=== PATIENT | female | born 1990 | race Caucasian/White ===

== ENCOUNTER 2016-12-03 02:15 | Inpatient (IN) | payer BC ==
[2016-12-03] VITALS (13 sets, daily range): BP systolic 122–133; BP diastolic 60–96
[~2016-12-03] VITALS: Ht 157.5 cm; Wt 90.9 kg
[2016-12-03 03:25] LABS: EOSINOPHIL (%) 0.3 % (0-5); HEMATOCRIT 36.8 % (36.0-46.0); IMMATURE GRANULOCYTE (%) 0.5 % (0.0-0.7); IMMATURE GRANULOCYTE COUNT 0.7 K/uL; LYMPHOCYTE COUNT 2.4 K/uL (1.0-2.8); MCH 32.5 PG (29.0-34.0); MCHC 35.1 G/DL (30.0-36.0); MCV 92.7 FL (83-99); MEAN PLAT.VOLUME 11.2 uM^3 (9.5-12.4); MONOCYTE COUNT 0.8 K/uL (0-0.8); NEUTROPHIL (%) 75.9 % (45-76); NEUTROPHIL COUNT 10.5 K/uL (1.8-6.4); PLATELET COUNT 161 K/uL (156-360); RBC DIS.WIDTH-CV 12.8 % (11.8-14.6); RBC DIS.WIDTH-SD 42.2 % (39-53); RED BLOOD COUNT 3.97 M/uL (3.80-5.20); WHITE BLOOD COUNT 13.8 K/uL (4.1-10.2)
[2016-12-03] MEDS ORDERED: PRENATAL TABLE1 EAC3 PO (03:47)
[2016-12-03] MEDS ORDERED: IBUPROFEN800 MG PO (07:16)
[2016-12-04 07:00] VITALS: BP 114/58
[2016-12-04 15:08] VITALS: BP 128/77
[2016-12-04 22:48] VITALS: BP 113/82
[2016-12-05 07:31] VITALS: BP 120/86
== END 2016-12-05 12:40 | disposition home or self-care (01) | DRG 775 ==
LOC: LDRP-OP 02:15 → 2WEST 02:16 → LDRP-OP 12-28 12:09
PROVIDERS: Advanced Practice Midwife
DX: O70.1 Second degree perineal laceration during delivery (principal); O99.824 Streptococcus B carrier state complicating childbirth; O99.214 Obesity complicating childbirth; E66.9 Obesity, unspecified; Z68.30 Body mass index [BMI] 30.0-30.9, adult; Z3A.40 40 weeks gestation of pregnancy; Z37.0 Single live birth
CPT/HCPCS: 85025; C1755; J2540; J7120

== ENCOUNTER → 2016-12-10 | Outpatient (CLI) | payer BC ==
[~2016-12-10] MED LIST: IBUPROFEN800 MG PO; PRENATAL TABLE1 EAC3 PO
== END | disposition home or self-care (01) ==
LOC: LAC 10:47
DX: O92.79 Other disorders of lactation (principal)
CPT/HCPCS: G0463